=== PATIENT | male | born 1930 | race Caucasian/White ===

== ENCOUNTER 2016-02-22 12:05 | Emergency (ER) | payer MEDICARE ==
[~2016-02-22] VITALS: Ht 172.7 cm; Wt 87.2 kg
[~2016-02-22 12:05] MED LIST: AC325T PO; ASPI-345 PO; ATOR80TA PO; CLON0.5T25 PO; CYAN10006 PO; CYAN500T44 PO; DIGO125T PO; DIGO125T6 PO; DOCU100C8 PO; DULO30CA3 PO; DULO60CA7 PO; FLDR.1T PO; FLUD0.1T PO; FURO-125 PO; HYDR-3702 PO; HYDR-3754 PO; IBUP200C11 PO; IRON1CAP31 PO; MAGN400O7 PO; MIRAPEX; NAPR220T66 PO; ONDAN4ODT PO; ONDN4T PO; ORPH100T3 PO; OXYC1TAB6 PO; OXYC1TAB87 PO; POLY17PO6 PO; PRAM0.12 PO; PRAM0.257 PO; PRED50TA PO; QUET50TA21 PO; QUET50TA3 PO; ROPI1TAB2 PO; ROSU40TA PO; SOTA80TA PO; SPRN25T PO; STL80T PO; TRM50T PO; ZOLP10TA PO; [UNRECOGNIZED DRUG - CODE] PO; [UNRECOGNIZED DRUG - CODE] PO
[2016-02-22] MEDS ORDERED: HYDROmorphone 1 MG/ML (DILAUDID) SYRINGE IV ONE (12:55)
[2016-02-22] MEDS ORDERED: NS IV 500 ML 500 ML IV SCH (12:55)
[2016-02-22] MEDS ORDERED: diphenhydrAMINE 50 MG/ML INJ (BENADRYL) IV ONE (12:55)
[2016-02-22] MEDS ORDERED: DEXAMETHASONE 10 MG/ML (DECADRON) VIAL IV ONE (12:55)
--- NOTE | 2016-02-22 13:47 | Diagnostic Imaging Report ---
Indication: Headache since last night. EXAM: Noncontrast brain CT is performed. COMPARISON: 10/01/2015. FINDINGS: There are mild diffuse atrophic changes. There are patchy low-density changes in the deep white matter compatible with chronic ischemic changes, similar in appearance to the prior study. There is no new hemorrhage or mass-effect or midline shift. The ventricles are normal in size and position. Calvarial windows appear unremarkable. The visualized portions of the mastoid air cells appear well-aerated. There are small retention cysts or polyps in the right maxillary sinus. There is mild mucosal thickening in the ethmoid air cells. 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 No acute intracranial hemorrhage or acute-appearing abnormality when compared with 10/01/2015. Dictated by: Dictated on workstation # [id number]
[2016-02-22] MEDS ORDERED: ERGO1TAB PO (14:31)
--- NOTE | 2016-02-22 14:46 | NUR ---
[facility] NURSING STAFF CALLS TO CHECK ON PT. REPORT GIVEN TO SAME NURSE THAT PT HAS A PRESCRIPTION TO TAKE & WILL RETURN TO [facility]. ALREADY HAS A FOLLOW UP APPT W/DR GLORIA ON 03/03/16. SON WILL GET RX & MEET PT AT [facility]. [facility] NURSE CALLS TRANSPORTATION STAFF. CL
--- NOTE | 2016-02-22 15:04 | NUR ---
NATHAN Hill IS THE NURSE FROM [facility] GIVEN REPORT. CL
[2016-02-22] MEDS ORDERED: INSULIN REGULAR 1 UNIT/0.01 ML DOSE IV ONE (15:20)
--- NOTE | 2016-02-22 15:24 | NUR ---
PT PREPARING TO LEAVE WITH MANAGEMENT SUPERVISOR, DEPARTING BP 179/114, WHEN REPEATED IT WAS 188/111. PT'S SON HAD MENTIONED EARLIER THAT PCP HAS BEEN ADJUSTING HIS BP MEDICINE TO TRY TO GET BP WITHIN NORMAL RANGE. DR DAMIAN MADE AWARE OF BP BEFORE DISCHARGE. NATHAN, NURSE AT [facility], NOTIFIED WELL.
[2016-02-22 15:49] VITALS: BP 188/111
--- NOTE | 2016-02-22 15:58 | NUR ---
NATHAN, NURSE FROM [facility], CALLS WITH QUESTION REGARDING RX FOR CAFERGOT AND HOW OFTEN PT CAN TAKE IT. DR DAMIAN ADVISES THAT PT MAY TAKE 1 TABLET PRN HEADACHE EVERY HOUR X 3.
== END 2016-02-22 15:24 | disposition home or self-care (01) ==
LOC: ED 12:06
DX: R51 Headache (principal)
CPT/HCPCS: 70450; 96361; 96374; 96375; 99282; J1100; J1170; J1200; J7040; 99283